=== PATIENT | female | born 1950 | race Two or more races ===

== ENCOUNTER 2024-08-07 16:59 | Emergency (ER) | payer OTHER ==
[~2024-08-07] VITALS: Ht 160 cm; Wt 35.0 kg
[2024-08-07] MEDS: HYDROcodone-ACET 5/325MG TAB PO ONE (18:36)
[2024-08-07 19:47] VITALS: PULSE 93; RESP 14; TEMP 98.7; O2SAT 91
[2024-08-07 19:57] LABS: Basophils # (auto) 0.1 10 ^3/uL (0-0.2); Basophils % (auto) 0.4 % (0.0-2.0); Eosinophils # (auto) 0 10 ^3/uL (0-0.8); Eosinophils % (auto) 0.2 % (0.0-7.0); Hematocrit 32.6 % (36.0-46.0); Hemoglobin 10.6 g/dL (12.2-16.2); Lymphocytes # (auto) 0.6 10 ^3/uL (0.4-5.4); Lymphocytes % (auto) 3.7 % (10.0-50.0); Mean Corpuscular Hemoglobin 28.9 pg (28.0-32.0); Mean Corpuscular Hgb Conc. 32.6 g/dL (32.0-36.0); Mean Corpuscular Volume 88.7 fL (80.0-100.0); Monocytes # (auto) 0.6 10 ^3/uL (0-1.3); Monocytes % (auto) 4.2 % (0.0-12.0); Neutrophils % (auto) 91.5 % (37.0-80.0); Platelet Count (auto) 387 10^3/uL (140-450); Red Blood Cells 3.67 10^6/uL (4.0-5.20); Red Cell Distribution Width 17.5 % (11.8-14.3); White Blood Cell 15.2 10^3/uL (4.4-10.8)
[2024-08-07 20:12] LABS: Chloride 102 mmol/L (98-107); Potassium 4.1 mmol/L (3.5-5.1); Sodium 142 mmol/L (136-145)
[2024-08-07 20:13] LABS: Anion Gap 5 (5-15); Carbon Dioxide 35 mmol/L (20-31)
[2024-08-07 20:14] LABS: Calcium 9.4 mg/dL (8.7-10.4)
[2024-08-07 20:18] LABS: Glucose 94 mg/dL (74-106)
[2024-08-07 20:19] LABS: BUN/Creatinine Ratio 52.4 (10.0-20.0); Blood Urea Nitrogen 22 mg/dL (9-23)
[2024-08-07 21:00] VITALS: O2SAT 97
[2024-08-07] MEDS: HYDROcodone-ACET 10/325MG TAB PO ONE (21:38)
[2024-08-07 21:52] LABS: Urine Amorphous Crystal FEW /hpf (None Seen); Urine Bacteria FEW /hpf (None Seen); Urine Blood Negative /uL (Negative); Urine Clarity Turbid (Clear); Urine Color Light-Yellow (Yellow); Urine Protein, UAD TRACE (Negative); Urine Specific Gravity 1.022 (1.001-1.035); Urine Urobilinogen Normal (Negative); Urine WBC 2 /hpf (0 - 5)
[2024-08-07 22:09] VITALS: BP 147/73; PULSE 91; RESP 18
== END 2024-08-07 22:37 | disposition home or self-care (01) ==
LOC: ER 16:59 → EDBD 16:59 → ER 22:37
DX: M25.551 Pain in right hip (principal); J96.90 Respiratory failure, unspecified, unspecified whether with hypoxia or hypercapnia; Z90.710 Acquired absence of both cervix and uterus; Z90.13 Acquired absence of bilateral breasts and nipples; Z98.890 Other specified postprocedural states; Z85.118 Personal history of other malignant neoplasm of bronchus and lung
CPT/HCPCS: 36415; 71045; 73700; 80048; 81001; 84484; 85025